=== PATIENT | female | born 1955 | race Caucasian/White ===

== ENCOUNTER 2020-02-03 20:43 | Emergency (ER) | payer OTHER ==
--- NOTE | 2020-02-03 21:06 | ER Document Report ---
ED Medical Screen (RME) - General Chief Complaint: Leg Swelling Stated Complaint: LEFT LEG SWELLING Time Seen by Provider: 02/03/20 21:01 Mode of Arrival: Ambulatory Information source: Patient Notes: 64-year-old female presents to ED for left leg swelling and pain. She has a history of DVTs x6. A Doppler has been ordered. Patient states she is alert oriented respirations regular nonlabored speaking in full sentences. She is being seen during a coronavirus pandemic. She has just traveled from [place]. I have greeted and performed a rapid initial assessment of this patient. A comprehensive ED assessment and evaluation of the patient, analysis of test results and completion of medical decision making process will be conducted by an additional ED providers. - Related Data Allergies/Adverse Reactions: No Known Allergies Allergy (Verified 02/03/20 20:59) Physical Exam - Vital signs Vitals: Temp Pulse Resp BP Pulse Ox 97.9 F 64 20 141/94 H 100 02/03/20 20:56 02/03/20 20:56 02/03/20 20:56 02/03/20 20:56 02/03/20 20:56 Course - Vital Signs Vital signs: Temp Pulse Resp BP Pulse Ox 97.9 F 64 20 141/94 H 100 02/03/20 20:56 02/03/20 20:56 02/03/20 20:56 02/03/20 20:56 02/03/20 20:56
--- NOTE | 2020-02-03 21:50 | ER Document Report ---
ED Extremity Problem, Lower - General Chief Complaint: Leg Swelling Stated Complaint: LEFT LEG SWELLING Time Seen by Provider: 02/03/20 21:01 Primary Care Provider: Elvie Montes [Other] - Follow up as needed (call tomorrow for follow up appoint ment) Mode of Arrival: Ambulatory Information source: Patient Notes: 64-year-old female past medical history significant for hyperlipidemia, GERD, multiple DVTs presents to the emergency room complaining of left foot and calf swelling that she noticed about an hour and half prior to arrival. Patient states she does have a history of 6 previous DVTs. Last 1 was between 3 and 4 years ago. States she did recently drive to [place] over the weekend also had a [address], earlier today. States she did get out of the car frequently to walk not currently on any blood thinners. Denies pain. TRAVEL OUTSIDE OF THE [place] IN LAST 30 DAYS: No - HPI Patient complains to provider of: Swelling - Related Data Allergies/Adverse Reactions: No Known Allergies Allergy (Verified 02/03/20 20:59) Home Medications: diflucan. calcium Past Medical History - General Information source: Patient - Social History Smoking Status: Never Smoker Chew tobacco use (# tins/day): No Frequency of alcohol use: Rare Drug Abuse: None Lives with: Family Family History: Reviewed & Not Pertinent Patient has suicidal ideation: No Patient has homicidal ideation: No - Past Medical History Cardiac Medical History: Reports: Hx DVT - x 6 Review of Systems - Review of Systems Constitutional: No symptoms reported EENT: No symptoms reported Cardiovascular: Edema Respiratory: No symptoms reported Musculoskeletal: Leg swelling, Ankle swelling Skin: denies: Rash Neurological/Psychological: No symptoms reported Physical Exam - Vital signs Vitals: Temp Pulse Resp BP Pulse Ox 97.9 F 64 20 141/94 H 100 02/03/20 20:56 02/03/20 20:56 02/03/20 20:56 02/03/20 20:56 02/03/20 20:56 - General General appearance: Appears well, Alert In distress: Mild - HEENT Head: Normocephalic, Atraumatic Eyes: Normal Pupils: PERRL - Respiratory Respiratory status: No respiratory distress Chest status: Nontender Breath sounds: Normal Chest palpation: Normal - Cardiovascular Rhythm: Regular Heart sounds: Normal auscultation Murmur: No Friction rub: No Pulses: Normal: Popliteal, Posterior tibial, Dorsalis pedis Normal capillary refill: Yes - Extremities Calf: Normal, Nontender, Other - Minimal swelling noted to the left calf.. No: Unable to bear weight Ankle: Edema - Minimal left ankle swelling. Nonpitting.. No: Nontender, Limited ROM, Positive Overton's test, Unable to bear weight Foot: Edema - Mild swelling noted to the left foot. Nonpitting.. No: Nontender Course - Re-evaluation Re-evalutation: 02/03/20 23:06 Patient is resting comfortably she has no acute distress at this time. Reviewed ultrasound results with patient. Neurovascular intact. She is ambulatory with a steady gait. Stable for discharge counseled to elevate leg, counseled to do flexion and extension exercises for the left lower extremity. Outpatient follow-up with primary care physician tomorrow. Given strict return to the emergency room guidelines. Return for any new or worsening symptoms. All questions were answered. Patient verbalized understanding and agrees with plan of care. 02/03/20 23:40 - Vital Signs Vital signs: Temp Pulse Resp BP Pulse Ox 97.9 F 70 18 127/80 H 99 02/03/20 23:24 02/03/20 23:24 02/03/20 23:24 02/03/20 23:24 02/03/20 23:24 Discharge - Discharge Clinical Impression: Swelling of left lower extremity Condition: Stable Disposition: HOME, SELF-CARE Instructions: Edema, Peripheral ([facility]) Additional Instructions: Your ultrasound did not show a DVT at this time. Rest elevate leg. Outpatient follow-up primary care physician tomorrow. Return for any new or worsening symptoms. Referrals: Elvie Montes [Other] - Follow up as needed (call tomorrow for follow up appointment)
--- NOTE | 2020-02-03 22:47 | RADIOLOGY REPORT (SQ) ---
EXAM DESCRIPTION: US EXTREMITY VEINS UNILATERAL COMPLETED DATE/TME: 02/03/2020 21:02 CLINICAL HISTORY: Swelling left leg history of DVTs x6 COMPARISON: None Available TECHNIQUE: Grayscale, color Doppler, and Doppler interrogation images of the common femoral vein, superficial femoral vein, popliteal, and posterior tibial veins of the right lower extremity were submitted FINDINGS: All of the above-mentioned venous structures demonstrate normal spontaneous flow with respiratory phasicity and were fully compressible. IMPRESSION: No sonographic evidence of acute DVT within the right lower extremity.
[2020-02-03 23:25] VITALS: BP 127/80
== END 2020-02-03 23:24 | disposition home or self-care (01) ==
LOC: ER 20:43
DX: M79.89 Other specified soft tissue disorders (principal); M79.672 Pain in left foot; E78.5 Hyperlipidemia, unspecified; Z79.899 Other long term (current) drug therapy
CPT/HCPCS: 93971; 99283

== ENCOUNTER → 2020-02-04 | Outpatient (CLI) | payer OTHER ==
[2020-02-04 12:07] LABS: ABSOLUTE EOSINOPHILS # (AUTO) 0.1 10^3/uL (0.0-0.6); ABSOLUTE LYMPHOCYTES (AUTO) 1.7 10^3/uL (0.5-4.7); ABSOLUTE MONOCYTES (AUTO) 0.4 10^3/uL (0.1-1.4); ABSOLUTE NEUT (AUTO) 2.1 10^3/uL (1.7-8.2); BASOPHILS % (AUTO) 0.8 % (0-2); EOSINOPHILS % (AUTO) 2.3 % (0-6); HEMOGLOBIN 13.6 g/dL (12.0-15.5); LYMPHOCYTES % (AUTO) 38.7 % (13-45); MEAN CORPUSCULAR HEMOGLOBIN 30.4 pg (27.0-33.4); MEAN CORPUSCULAR HGB CONC 34.8 g/dL (32.0-36.0); MEAN CORPUSCULAR VOLUME 87 fl (80-97); MONOCYTES % (AUTO) 9.9 % (3-13); PLATELET COUNT 273 10^3/uL (150-450); RED BLOOD COUNT 4.47 10^6/uL (3.72-5.28); RED CELL DISTRIBUTION WIDTH 13.8 % (11.5-14.0); SEGMENTED NEUTROPHILS % (AUTO) 48.3 % (42-78); TOTAL CELLS COUNTED % (AUTO) 100 %; WHITE BLOOD COUNT 4.4 10^3/uL (4.0-10.5)
[2020-02-04 12:26] LABS: ALBUMIN 4.5 g/dL (3.5-5.0); ALKALINE PHOSPHATASE 80 U/L (38-126); ANION GAP 7 (5-19); ASPARTATE AMINO TRANSFERASE 27 U/L (14-36); BILIRUBIN,TOTAL 0.7 mg/dL (0.2-1.3); BLOOD UREA NITROGEN 14 mg/dL (7-20); CALCIUM 9.7 mg/dL (8.4-10.2); CARBON DIOXIDE 27 mmol/L (22-30); CHLORIDE 105 mmol/L (98-107); GLUCOSE 93 mg/dL (75-110); POTASSIUM 4.5 mmol/L (3.6-5.0)
[2020-02-04 12:55] LABS: ERYTHROCYTE SEDIMENTATION RATE 9 mm/hr (0-30)
== END ==
LOC: OD 10:56
DX: R22.42 Localized swelling, mass and lump, left lower limb (principal); M79.605 Pain in left leg; Z86.718 Personal history of other venous thrombosis and embolism
CPT/HCPCS: 36415; 80053; 85025; 85379; 85652; 86141

== ENCOUNTER 2020-02-07 09:33 | Emergency (ER) | payer OTHER ==
[2020-02-07 11:28] LABS: ABSOLUTE EOSINOPHILS # (AUTO) 0.1 10^3/uL (0.0-0.6); ABSOLUTE LYMPHOCYTES (AUTO) 1.6 10^3/uL (0.5-4.7); ABSOLUTE MONOCYTES (AUTO) 0.4 10^3/uL (0.1-1.4); ABSOLUTE NEUT (AUTO) 1.9 10^3/uL (1.7-8.2); BASOPHILS % (AUTO) 0.9 % (0-2); EOSINOPHILS % (AUTO) 2.9 % (0-6); HEMATOCRIT 40.1 % (36.0-47.0); HEMOGLOBIN 13.8 g/dL (12.0-15.5); LYMPHOCYTES % (AUTO) 40.1 % (13-45); MEAN CORPUSCULAR HEMOGLOBIN 30.1 pg (27.0-33.4); MEAN CORPUSCULAR HGB CONC 34.4 g/dL (32.0-36.0); MEAN CORPUSCULAR VOLUME 87 fl (80-97); MONOCYTES % (AUTO) 9.6 % (3-13); PLATELET COUNT 263 10^3/uL (150-450); RED CELL DISTRIBUTION WIDTH 13.6 % (11.5-14.0); SEGMENTED NEUTROPHILS % (AUTO) 46.5 % (42-78); TOTAL CELLS COUNTED % (AUTO) 100 %
--- NOTE | 2020-02-07 11:46 | ER Document Report ---
Entered by ROSALEE RIOS SCRIBE 02/07/20 1050 Acting as scribe for:MELCHOR OCHOA MD ED General - General Chief Complaint: Leg Pain Stated Complaint: LEG PAIN, ABDOMINAL PAIN Time Seen by Provider: 02/07/20 09:35 Information source: Patient Notes: This 64-year-old female with a history of 6 DVTs presents to the emergency department complaining of left leg pain. Patient has been helping her daughter move from [place] so she has been making trips there and back recently. Patient describes that she was in this emergency department four days ago for same leg pain. Patient reported that the ultrasound performed was normal and she was discharged. Patient said the next day her local physician from [place] ordered blood work and mentioned that usually they performed a CTA to find her past DVT's. Patient reported that her blood work was normal. Her D- dimer was reported to be 0.37. Patient reports that she has increasing swelling in her calf throughout the day, pain in her left thigh and left groin. Patient said that her left groin pain began two days prior to arrival to the emergency department. Patient states that she has been using a hot compress and a baby A spirin with no relief. Patient denies fever. TRAVEL OUTSIDE OF THE [place] IN LAST 30 DAYS: No - Related Data Allergies/Adverse Reactions: No Known Allergies Allergy (Verified 02/07/20 09:55) Past Medical History - General Information source: Patient - Social History Smoking Status: Never Smoker Cigarette use (# per day): No Chew tobacco use (# tins/day): No Family History: Reviewed & Not Pertinent Patient has homicidal ideation: No - Past Medical History Cardiac Medical History: Reports: Hx DVT - x 6, Hx Hypercholesterolemia GI Medical History: Reports: Hx Gastroesophageal Reflux Disease Past Surgical History: Reports: Hx Appendectomy, Hx Hysterectomy, Hx Lumpectomy - Uterus, Hx Orthopedic Surgery - Right foot, left wrist Review of Systems - Review of Systems Constitutional: See HPI. denies: Fever EENT: No symptoms reported Cardiovascular: No symptoms reported Respiratory: No symptoms reported Gastrointestinal: No symptoms reported Genitourinary: No symptoms reported Female Genitourinary: No symptoms reported Musculoskeletal: See HPI, Leg swelling, Other - Leg pain Skin: No symptoms reported Hematologic/Lymphatic: No symptoms reported Neurological/Psychological: No symptoms reported -: Yes All other systems reviewed and negative Physical Exam - Vital signs Vitals: Temp Pulse Resp BP Pulse Ox 97.8 F 58 L 18 117/86 H 98 02/07/20 09:44 02/07/20 09:44 02/07/20 09:44 02/07/20 09:44 02/07/20 09:44 - Notes Notes: Physical Exam: General: Alert, appears well. HEENT: Normocephalic. Atraumatic. PERRL. Extraocular movements intact. Oropharyn x clear. Neck: Supple. Non-tender. Respiratory: No respiratory distress. Clear and equal breath sounds bilaterally. Cardiovascular: Regular rate and rhythm. Abdominal: Normal Inspection. Non-tender. No distension. Normal Bowel Sounds. Back: No gross abnormalities. Extremities: Moves all four extremities. Upper extremities: Normal inspection. Normal ROM. Lower extremities: Normal ROM. Left calf is slightly larger than the right calf. No warmth noted. Tenderness to palpation to the medial left thigh. Tenderness to palpation to the groin over the area where the ligament attaches to the pubic ramus. Adduction of the feet with resistance increases pain in the left groin area. Neurological: Normal cognition. AAOx4. Normal speech. Psychological: Normal affect. Normal Mood. Skin: Warm. Dry. Normal color. Course - Re-evaluation Re-evalutation: 02/07/20 11:52 Patient had a d-dimer that was not negative on 02/04/2020. The value was 0.37 Since then she has developed pain along the greater saphenous from the distal thigh extending to the groin. There is also groin tenderness which seems to be groin strain. The palpable groin tenderness seems to be a distinct problem separate from the tenderness along the greater saphenous. The patient reports in the past that she has had DVTs, and they were not found with venous Doppler, but were found with CT angiograms. - Vital Signs Vital signs: Temp Pulse Resp BP Pulse Ox 97.8 F 58 L 18 117/86 H 98 02/07/20 09:56 02/07/20 09:44 02/07/20 09:44 02/07/20 09:44 02/07/20 09:44 - Laboratory Result Diagrams: 02/07/20 11:00 02/07/20 11:00 Discharge - Discharge Clinical Impression: Swelling of left lower extremity, Strain of left groin Condition: Stable Disposition: HOME, SELF-CARE Additional Instructions: Inguinal Strain You have an inguinal strain, also known as a pulled groin. This injury c auses pain where the lower abdominal wall meets the upper leg. The strain can affect several different muscles and tendons. When it occurs during running, the injury usually affects the tendon or upper muscle fibers of the thigh muscles. With weight lifting, it's the lower fibers of the abdominal wall muscles that are most often strained. Running, lifting, squatting, or even walking can cause pain. A strain can take a few weeks to heal. Apply ice packs during the first couple of days following the injury. Antiinflammatory pain medication can help. Avoid lifting, running, jumping, and other activities that provoke pain. No hernia was found. But sometimes a hernia can begin with the same symptoms as a strain of the groin. If you find a lump or bulge in the groin, pain or swelling in the testicle, abdominal cramping, or vomiting, you should return for re-examination. Your evaluation today did not show evidence of DVT. Your exam does suggest that you have a left inguinal or groin strain. Limiting walking and any activity that makes the pain worse will help it heal sooner. Ibuprofen 600 mg every 6-8 hours will help with the inflammation and discomfort. Elevate your legs whenever you do not have to be up to help prevent the swelling. Follow-up with your primary care provider when you return home for reevaluation this week. RETURN TO THE EMERGENCY ROOM IF ANY NEW OR WORSENING SYMPTOMS. I personally performed the services described in the documentation, reviewed and edited the documentation which was dictated to the scribe in my presence, and it accurately records my words and actions.
[2020-02-07 11:51] LABS: ALBUMIN 4.6 g/dL (3.5-5.0); ALKALINE PHOSPHATASE 76 U/L (38-126); ANION GAP 7 (5-19); ASPARTATE AMINO TRANSFERASE 24 U/L (14-36); BILIRUBIN,TOTAL 0.7 mg/dL (0.2-1.3); BLOOD UREA NITROGEN 13 mg/dL (7-20); CALCIUM 9.7 mg/dL (8.4-10.2); CARBON DIOXIDE 27 mmol/L (22-30); CHLORIDE 105 mmol/L (98-107); GLUCOSE 99 mg/dL (75-110); POTASSIUM 4.3 mmol/L (3.6-5.0)
--- NOTE | 2020-02-07 13:43 | RADIOLOGY REPORT (SQ) ---
EXAM DESCRIPTION: CTA ABDOMEN/PELVIS W WO IMAGES COMPLETED DATE/TIME: 02/07/2020 12:22 pm REASON FOR STUDY: extend to distal femur, suspect DVT. Left Groin pain. Lower extremity venous dup guerrero, 02/03/2020. Appendectomy and hysterectomy. COMPARISON: None. TECHNIQUE: CT scan of the abdominal aorta extending to the iliac bifurcation performed with and with out intravenous contrast using helical scanning technique with dynamic intravenous contrast injection . Images reviewed with lung, soft tissue, and bone windows. Reconstructed coronal and sagittal MPR im ages reviewed. All images stored on PACS. Advanced 3D imaging as volume rendering, MIPS, SSD performed? yes All CT scanners at this facility use dose modulation, iterative reconstruction, and/or weight based d osing when appropriate to reduce radiation dose to as low as reasonably achievable (ALARA). [facility]: Dose Right [facility]: CareDose [facility]: Dose Right [facility]: Teradose 4D [facility]: StepOut CONTRAST TYPE AND DOSE: contrast/concentration: Isovue 350.00 mg/ml; Total Contrast Delivered: 100.0 ml; Total Saline Delivered: 90.0 ml RENAL FUNCTION: GFR > 60. LIMITATIONS: None. FINDINGS: NON-CONTRASTED IMAGING: No significant renal or bladder calcifications. No other significa nt organ calcifications. POST-CONTRAST IMAGING: AORTA AND VESSELS: No aneurysm. No dissection. Renal arteries, SMA, celiac without stenosis. There i s no evidence of deep venous thrombosis in the external iliac veins, common iliac veins, or IVC. No significant compression of the venous structures. LUNG BASES: No significant findings. No nodules or infiltrates. LIVER: Normal size. No masses or dilated ducts. SPLEEN: Normal size. No focal lesions. PANCREAS: No masses. No significant calcifications. No adjacent inflammation or peripancreatic fluid collections. Pancreatic duct not dilated. GALLBLADDER: No identified stones by CT criteria. No inflammatory changes to suggest cholecystitis. ADRENAL GLANDS: No significant masses or asymmetry. RIGHT KIDNEY AND URETER: No mass, calculi or urinary tract obstruction. LEFT KIDNEY AND URETER: No mass, calculi or urinary tract obstruction. RETROPERITONEUM: No retroperitoneal adenopathy, hemorrhage or masses. BOWEL AND PERITONEAL CAVITY: No masses or inflammatory changes. No free fluid or peritoneal masses. APPENDIX: Surgically absent. ABDOMINAL WALL: No masses. No hernias. PELVIS: Status post hysterectomy. Surgical clips in the pelvis and retroperitoneum adjacent to the IVC. No adenopathy. No pelvic mass. Urinary bladder has normal contour and appearance. BONY STRUCTURES: No suspicious bone lesions. No lytic or blastic lesions. Sclerosis at the pubic sy mphysis. No suspicious bone lesions. 3-D IMAGING: Confirms the above findings. OTHER: No other significant finding. IMPRESSION: No CT evidence of DVT in the left groin or peritoneal veins. No CT abnormality to expla in the patient's symptoms. TECHNICAL DOCUMENTATION: JOB ID: [id number] Quality ID # [id number]: Final reports with documentation of one or more dose reduction techniques (e.g., Au tomated exposure control, adjustment of the mA and/or kV according to patient size, use of iterative reconstruction technique) 2010 [employer]- All Rights Reserved Reading location - IP/workstation name: [email or web address]
[2020-02-07 14:24] VITALS: BP 113/76
== END 2020-02-07 14:24 | disposition home or self-care (01) ==
LOC: ER 09:33
DX: S39.011A Strain of muscle, fascia and tendon of abdomen, initial encounter (principal); M79.89 Other specified soft tissue disorders; M79.605 Pain in left leg; X58.XXXA Exposure to other specified factors, initial encounter; Y93.E6 Activity, residential relocation; E78.00 Pure hypercholesterolemia, unspecified; Z86.718 Personal history of other venous thrombosis and embolism; Z90.710 Acquired absence of both cervix and uterus
CPT/HCPCS: 36415; 74174; 80053; 85025; 85379; 99284